=== PATIENT | female | born 1965 | race Caucasian/White ===

== ENCOUNTER 2016-12-25 10:03 | Outpatient (CLI) | payer BC, OTHER ==
--- NOTE | 2016-12-26 16:59 | Mammography Report ---
DIGITAL SCREENING MAMMOGRAM: 12/25/2016 CLINICAL INDICATION: A 51-year-old for screening. COMPARISON: 09/2014, 08/2011, 06/2010, 02/2009, 02/2008 TECHNIQUE: Routine CC and MLO projections were obtained of the breasts. FINDINGS: Scattered fibroglandular tissue is present within the breasts. There are no dominant mayra s, suspicious microcalcifications, or secondary signs of malignancy. In comparison to the previous st udies, there are no significant changes. ASSESSMENT: NO MAMMOGRAPHIC EVIDENCE OF MALIGNANCY. NO SIGNIFICANT INTERVAL CHANGES. RECOMMENDATION: Screening mammography is recommended annually. BIRADS category 1 - negative. STANDARD QUALIFYING STATEMENTS 1. This examination was reviewed with the aid of Computed-Aided Detection (CAD). 2. A negative or benign imaging report should not delay biopsy if clinically suspicious findings are present. Consider surgical consultation if warranted. More than 5% of cancers are not identified by i maging. 3. Dense breasts may obscure an underlying neoplasm. JOB #: [id number] EXT JOB #:[id number]
== END 2016-12-25 10:04 | disposition home or self-care (01) ==
LOC: DI.N 10:03
PROVIDERS: ATTEND Family Medicine
DX: Z12.31 Encounter for screening mammogram for malignant neoplasm of breast (principal)
CPT/HCPCS: 77067

== ENCOUNTER 2018-06-03 11:00 | Outpatient (CLI) | payer BC ==
--- NOTE | 2018-06-03 16:49 | XRAY Report ---
Reason: UNSPECIFIED OSTEOARTHRITIS, UNSPECIFIED SITE Procedure Date: 06/03/2018 Accession Number: [id number] / [id number] Procedure: XRN - Knee 3 View BILAT CPT Code: FULL RESULT: EXAMS: 1. Right Knee Radiography 2. Left Knee Radiography EXAM DATE:06/03/2018 11:22 AM. CLINICAL HISTORY:Osteoarthritis. COMPARISON: None. TECHNIQUE: 3 views each. FINDINGS: Right Knee: Bones: No acute fracture or bony lesion. Mild degenerative spurring. Joints: Mild narrowing of the medial and patellofemoral compartment of the right knee. No knee effusion. Soft Tissues: Normal. No soft tissue swelling. Left Knee: Bones: No acute fracture or bony lesion. Mild degenerative spurring. Joints: Mild narrowing of the medial compartment of the left knee. No knee effusion. Soft Tissues: Normal. No soft tissue swelling. IMPRESSION: 1. Mild degenerative changes of the right and left knee. RADIA
== END 2018-06-03 11:01 | disposition home or self-care (01) ==
LOC: DI.N 11:00
PROVIDERS: ATTEND Family Medicine
DX: M17.0 Bilateral primary osteoarthritis of knee (principal)

== ENCOUNTER 2019-09-26 16:33 | Outpatient (CLI) | payer OTHER ==
--- NOTE | 2019-09-27 15:22 | XRAY Report ---
Reason: PAINFUL LEFT FOOT Procedure Date: 09/26/2019 Accession Number: [id number] / [id number] Procedure: XR - Foot 3 View LT CPT Code: Final Report FULL RESULT: EXAM: LEFT FOOT RADIOGRAPHY EXAM DATE: 09/26/2019 04:53 PM. CLINICAL HISTORY: Painful left foot. COMPARISON: XR FOOT COMPLETE MIN 3 VIEWS 02/15/2010 11:13 AM. TECHNIQUE: 3 views. FINDINGS: Bones: A prominent plantar calcaneal bone spur measures 11 mm similar to prior exam. No fracture or bone lesion. Joints: Minimal changes of osteoarthritis at the first MTP joint present. No subluxation. Soft Tissues: Normal. No soft tissue swelling. IMPRESSION: 1. Moderate plantar calcaneal bone spur. 2. Minimal first MTP joint osteoarthritis. RADIA
== END 2019-09-26 16:34 | disposition home or self-care (01) ==
LOC: DI 16:33
PROVIDERS: ATTEND Podiatrist
DX: M19.072 Primary osteoarthritis, left ankle and foot (principal); M77.32 Calcaneal spur, left foot

== ENCOUNTER 2020-12-05 08:17 | Outpatient (CLI) | payer OTHER ==
--- NOTE | 2020-12-06 11:13 | Mammography Report ---
BILATERAL DIGITAL SCREENING MAMMOGRAM 3D/2D: 12/05/2020 CLINICAL: Routine screening. Comparison is made to exams dated: 12/25/2016 mammogram, 10/10/2014 mammogram, and 09/08/2011 mammogram - . There are scattered fibroglandular elements in both breasts. No significant masses, calcifications, or other findings are seen in either breast. There has been no significant interval change. IMPRESSION: NEGATIVE There is no mammographic evidence of malignancy. A 1 year screening mammogram is recommended. This exam was interpreted at Station ID: [id number]. NOTE: For mammograms, a report in lay terms will be sent to the patient. Approximately 15% of breast malignancies will not be visualized mammographically. In the management of a palpable breast mass, a negative mammogram must not discourage biopsy of a clinically suspicious lesion. Electronically Signed By: Hector Shen M.D. [email or web address]:12/05/2020 09:26:09 ACR BI-RADS Category 1: Negative 3341F PARENCHYMAL PATTERN: (A) - The breast(s) demonstrate(s) scattered fibroglandular densities. BI-RADS CATEGORY: (1) - 1 RECOMMENDATION: (ANNUAL) - Recommend routine annual screening mammography. [id number] 1 year screening LATERALITY: (B)
== END 2020-12-05 08:18 | disposition home or self-care (01) ==
LOC: DI.N 08:17
PROVIDERS: ATTEND Family Medicine
DX: Z12.31 Encounter for screening mammogram for malignant neoplasm of breast (principal)

== ENCOUNTER 2023-10-06 10:23 | Outpatient (CLI) | payer OTHER ==
--- NOTE | 2023-10-08 09:45 | Mammography Report ---
BILATERAL DIGITAL SCREENING MAMMOGRAM 3D/2D: 10/06/2023 CLINICAL: Routine screening. Comparison is made to exams dated: 12/05/2020 mammogram, 12/25/2016 mammogram, 10/10/2014 mammogram, mammogram, and 07/03/2010 mammogram - [facility]. There are scattered areas of fibroglandular density in both breasts (category b / 25%-50% glandular t issue). No significant masses, calcifications, or other findings are seen in either breast. There has been no significant interval change. IMPRESSION: NEGATIVE There is no mammographic evidence of malignancy. A 1 year screening mammogram is recommended. Based on the Tyrer Cuzick model (a risk assessment model) the patient's lifetime risk is 6.0% and her 10 year risk is 2.4%. According to the ACR, ACS, and NCCN guidelines, an annual breast MRI exam bartolo g with mammogram is recommended if the patient's lifetime risk is 20% or greater. This exam was interpreted at Station ID: [id number]. NOTE: For mammograms, a report in lay terms will be sent to the patient. Approximately 15% of breast malignancies will not be visualized mammographically. In the management of a palpable breast mass, a negative mammogram must not discourage biopsy of a clinically suspicious lesion. Electronically Signed By: Tabitha [email or web address]:10/07/2023 15:26:33 ACR BI-RADS Category 1: Negative 3341F PARENCHYMAL PATTERN: (A) - The breast(s) demonstrate(s) scattered fibroglandular densities. BI-RADS CATEGORY: (1) - 1 Mammogram [id number] 1 year screening LATERALITY: (B)
== END 2023-10-06 10:24 | disposition home or self-care (01) ==
LOC: DI.N 10:23
DX: Z12.31 Encounter for screening mammogram for malignant neoplasm of breast (principal); R92.323 Mammographic fibroglandular density, bilateral breasts